=== PATIENT | male | born 1975 | race Caucasian/White ===

== ENCOUNTER 2025-01-08 19:55 | Emergency (ER) | payer OTHER, SELFPAY ==
[2025-01-08 20:01] VITALS: BP 149/97
[2025-01-08 20:18] LABS: Hematocrit 44.8 % (39.0-52.0); Hemoglobin 15.9 g/dL (13.0-18.0); Mean Corp Hgb Conc. 35.5 g/dL (33.0-37.0); Mean Corpuscular Volume 87.5 fL (80.0-94.0); Nucleated Red Blood Cells % 0 % (-); Platelet Count 220 10^3/uL (130-400); Red Cell Dist. Width 11.8 % (11.5-14.5)
[2025-01-08 20:29] LABS: APTT 25.0 Sec (23.4-35.0)
[2025-01-08 20:31] LABS: ALT (SGPT) 33 U/L (0-50); AST (SGOT) 29 U/L (17-59); Albumin 4.7 g/dl (3.5-5.0); Alkaline Phosphatase 69 U/L (38-126); Blood Urea Nitrogen 15 mg/dl (9-20); Calcium 9.8 mg/dl (8.4-10.2); Carbon Dioxide 29 mmol/L (22-30); Chloride 103 mmol/L (98-107); Glucose 107 mg/dl (70-99); Potassium 4.3 mmol/L (3.5-5.1); Sodium 136 mmol/L (135-145); Total Protein 7.6 g/dl (6.3-8.2); eGFR > 60.00
[2025-01-08 20:42] LABS: Troponin I < 0.012 ng/ml
[2025-01-08 22:45] VITALS: BP 142/105; BMI 24.6
--- NOTE | 2025-01-08 23:09 | ED.GENMED ---
History of Present Illness
General
Chief Complaint: Cardiac Symptoms
Time Seen by Provider: 01/08/25 22:50
History of Present Illness
History of Present Illness:
See MDM
Past History
Past History
ED Past Medical History: Other (Gastritis)
ED Past Surgical History: Orthopedic (Left shoulder surgery)
Social History
Tobacco: Non-smoker
Alcohol: Occasional
Personal:
Living: with family
Phy Exam
Physical Exam
Physical Exam:
See MDM
Course
Orders/Labs/Results
Orders:
Orders
01/08/25 20:03
Electrocardiogram (*1) Urgent
Reason for Study: Chest Pain
CR Chest - 2 Views Urgent
Comment:
Reason For Exam: SOB
01/08/25 20:04
EKG- Treatment ONCE
01/08/25 20:10
Complete Blood Count/With Diff Urgent
Comprehensive Metabolic Panel Urgent
NT-proBNP Urgent
PTT Urgent
Troponin I Urgent
Abnormal Lab Results
01/08/25
20:10
MCH 31.1 H pg
(27.0-31.0)
Glucose 107 H mg/dl
(70-99)
01/08/25 20:10
01/08/25 20:10
Vital Signs
Initial and Last Documented VS:
Initial Vital Signs
Temp Pulse Resp BP Pulse Ox
98.0 F 76 20 149/97 98
01/08/25 20:01 01/08/25 20:01 01/08/25 20:01 01/08/25 20:01 01/08/25 20:01
Last Documented Vital Signs
Temp Pulse Resp BP Pulse Ox
98.0 F 62 20 142/105 98
01/08/25 20:01 01/08/25 22:45 01/08/25 20:01 01/08/25 22:45 01/08/25 22:45
MDM/Problems Addressed
Differential Diagnosis Includes:
Note:
CHIEF COMPLAINT(S)
Chest pressure.
HISTORY OF PRESENT ILLNESS
The patient is a 49-year-old male who presents with persistent chest pressure. This symptom has been persistent since around December and has not resolved, even after taking nonsteroidal anti-inflammatory drugs like Meloxicam. The patient describes the
sensation as pressure rather than pain, which occasionally radiates and is associated with attempting to take deep breaths. Despite engaging in workouts, the patient notes a sense of relief during physical activity, but the pressure never fully
resolves. As of January 02, the pressure became more consistent, coinciding with episodes of fatigue and difficulty breathing during non-exertional activities like sitting in meetings. The patient has a past medical history of palpitations and has
been evaluated by a primary care provider and a bottled beverage inspector previously, with no significant findings at that time. The patient remains concerned about the possibility of a cardiac event, specifically considering the symptoms resemble those of a
myocardial infarction. Diagnostic evaluations, including an electrocardiogram (EKG) and measurement of cardiac biomarkers such as troponin, have returned normal results.
PHYSICAL EXAM
General: Well appearing and non-toxic
HEENT: protecting airway
Neck: appears supple
CV: No evidence of cyanosis. Regular rate and rhythm
Resp: No accessory muscle use. Lungs clear
Abd: Non-distended
Extremities: No deformities. No leg edema or unilateral tenderness
Neuro: alert
Psych: Normal affect
Skin: Intact
Nursing notes reviewed and vital signs reviewed. Blood pressure noted to be elevated, with readings around 150s over 130s, though clinical significance is uncertain.
PROBLEM LIST
Acute:
- Chest pressure of uncertain etiology.
PLAN
- Discussion with the patient regarding the reassuring nature of the current cardiac evaluation, as both EKG and troponin levels are normal, indicating no acute myocardial infarction.
- Discharge with instructions to follow up with primary care provider and possibly bottled beverage inspector for further monitoring and evaluation, such as consideration for a Holter monitor to evaluate for intermittent arrhythmias.
- Recommendation to continue observing for any new or worsening symptoms, especially those suggestive of a more acute cardiac event.
- No specific lifestyle modifications recommended at this time, as the patient is already maintaining an active and healthy lifestyle.
DIFFERENTIAL DIAGNOSIS
The Differential Diagnosis includes, in no particular order and is not limited to:
- Non-cardiac chest pain
- Gastroesophageal reflux disease (GERD) or esophageal spasm
- Musculoskeletal chest pain
- Coronary artery spasm
- Pericarditis
- Anxiety or stress-related chest discomfort
- Pulmonary embolism (less likely given the absence of clinical signs)
- Aortic dissection (less likely given clinical presentation)
- Pneumothorax (less likely given clinical presentation)
- Long COVID-related symptoms
EKG:
Sinus rhythm, normal axis, no STEMI, 60 bpm
Disposition:
SUMMARY OF ENCOUNTER
The patient, a 49-year-old male, presented to the emergency department with persistent chest pressure. Symptom onset was in December, and it has not resolved with nonsteroidal anti-inflammatory drug use. His presentation included concerns for potential
myocardial infarction. Notably, the patient reported regular exercise, which did not exacerbate symptoms. An electrocardiogram (EKG) and troponin levels were performed in the emergency department and returned with normal results, reducing the
likelihood of an ischemic event. A clear chest x-ray further supported non-cardiac causes. Outpatient follow-up with a primary care provider and bottled beverage inspector, potentially involving a Holter monitor, was discussed as the next step.
DISPOSITION
Discharge
ASSESSMENT
The etiology of the chest pressure remains uncertain, but current evaluations indicate no acute cardiac event.
PLAN
The patient will be discharged with instructions for outpatient follow-up. A cardiology appointment is already scheduled next month, and contacting the primary care provider for potential Holter monitoring is recommended. Close monitoring of
symptoms with instructions to return for any worsening or new symptoms is advised.
INDEPENDENT REVIEW OF LABS AND INTERPRETATION OF TESTS
My independent review of EKG is non-ischemic.
My independent review of troponin levels is normal.
My independent interpretation of the chest x-ray is clear.
PATIENT EDUCATION AND COUNSELING
Discussed the reassuring nature of the current cardiac evaluation with normal EKG, troponin levels, and a clear chest x-ray. Outlined the importance of follow-up with the primary care provider and bottled beverage inspector to monitor potential intermittent
arrhythmias or other causes of chest pressure.
FOLLOW-UP INSTRUCTIONS
The patient should follow up with their primary care provider promptly and attend the cardiology appointment next month. Consider a discussion with the primary care provider regarding a Holter monitor for further evaluation of intermittent
arrhythmias.
MEDICATION RECONCILIATION
The patient should continue with any current medications as prescribed and monitor for any changes in symptoms.
MEDICAL DECISION MAKING
-Complexity of Data Reviewed: Chronic conditions affecting care include previous palpitations with a differential diagnosis list: non-cardiac chest pain, GERD or esophageal spasm, musculoskeletal chest pain, coronary artery spasm, pericarditis,
anxiety or stress-related chest discomfort, with less likelihood of pulmonary embolism, aortic dissection, pneumothorax, or long COVID symptoms.
-Data:
Category 1
Reviewed EKG and troponin levels for cardiac evaluation, both normal.
Category 3
Discussion of management with the patient regarding the current reassuring cardiac workup and appropriate discharge with follow-up in outpatient settings.
-Risk:
Consideration of Admission/Observation: Escalation of care including admission/observation was considered given the complexity and risk of the patients presenting complaint, exam findings, and/or their underlying comorbidities. However, ultimately I
feel the patient is safe for outpatient management with close follow-up. Reasoning: Work-up reassuring, does not reveal any acute life/organ-threatening processes, patients symptoms well-controlled upon reevaluation, reexamination is reassuring,
vitals are stable, patient agreeable with discharge, reliable for follow-up.
DIAGNOSIS
R07.9 Chest pain, unspecified
*Pulse Oximetry
SaO2: 98
Oxygen Mode of Delivery: Room air
Patient hypoxic: no
*Critical Care Note
Total Time (30-74mins, 75-104mins- exclusive of procedures): Not Applicable
ED Attending Note
-
Portions of this chart may have been created with voice recognition software.� Occasional wrong word or��sound alike� substitutions may have occurred due to the inherent limitations of voice recognition software.
Discharge Plan
Departure
Patient Disposition: Home (Routine Discharge)
Date of Disposition: 01/08/25
Time of Disposition: 23:11
Patient with high blood pressure during this ER visit?: Yes
Discharge Problem:
Chest pressure
Instructions: Chest Pain (DC), BLOOD PRESSURE
Prescriptions:
No Action
loratadine 10 MG tablet
10 mg PO DAILY
cholecalciferol (vitamin D3) 2,000 UNITS tablet
4,000 units PO DAILY
omega [id number]-fish oil [Fish Oil] 1 EACH capsule
1 ea PO DAILY
multivitamin with folic acid [Tab-A-Pedro] 1 TABLET tablet
1 tab PO DAILY
Glucosamin/Chondro/Tumeric
2 tab PO DAILY
Activity Restrictions/Additional Instructions:
Please return for any worsening symptoms.
You may return at any time if you have further concerns.
Please follow up with your doctor at the first available appointment, preferably this week.
Please discuss your symptoms and discuss whether or not it is worth obtaining a Holter monitor.
Thank you for choosing [facility].
Interventions
Interventions:
*Risk Screen - Suicide Last Done: 01/08/25 22:46
*General Assessment Last Done: 01/08/25 20:01
*Neglect/Abuse Screening Last Done: 01/08/25 22:46
*ED- Fall Risk Assessment Last Done: 01/08/25 22:46
*ED COVID-19 Vaccine History Last Done: 01/08/25 22:46
ED- Cardiac Assessment Last Done: 01/08/25 22:48
ED- Pulmonary Assessment Last Done: 01/08/25 22:48
Discharge Date and Time
Print Language: [id number]
[2025-01-08 23:31] VITALS: BP 151/92
== END 2025-01-08 23:33 | disposition home or self-care (01) ==
LOC: EMR 19:55
PROVIDERS: Emergency Medicine; EMERGENCY PHYSICIAN Student in an Organized Health Care Education/Training Program; FAMILY PHYSICIAN Family Medicine
DX: R07.89 Other chest pain (principal)
CPT/HCPCS: 99285; 71046; 80053; 83880; 84484; 85025; 85730; 93005